=== PATIENT | female | born 1950 | race Caucasian/White ===

== ENCOUNTER → 2016-07-11 | Outpatient (CLI) | payer OTHER ==
[~2016-07-11] MED LIST: ALLO1TAB51 PO; AMLO-110 PO; ASPI-232 PO; CLOT1CRE3 TOP; DOCU100C PO; FENT100D2 TD; HYDR-5688 PO; LISI10TA PO; LPT/40 PO; MULT-506 PO; OMEP40CA PO; SOY CARE PO; TESTOSTERONE CREAM TOP; VITA400C15 PO; VITAMIN D PO
[2016-07-11 14:07] LABS: BASO % 0.9 %; BASO ABS # 0.05 K/uL (0-0.2); COMPLETE YES; EOS % 5.4 %; HEMATOCRIT 42.2 % (37-47); LYMPH ABS # 1.84 K/uL (1.2-3.4); MEAN CORPUSCULAR HEMOGLOBIN 28.7 pg (25-34); MEAN CORPUSCULAR HGB CONC 32.9 g/dl (32-36); MEAN PLATELET VOLUME 11.1 fL (7.4-10.4); MONO % 6.5 %; NEUT % 54.2 %; PLATELET COUNT 251 K/uL (130-400); RED BLOOD COUNT 4.85 M/uL (4.2-5.4); WHITE BLOOD COUNT 5.58 K/uL (4.8-10.8)
[2016-07-11 14:08] LABS: ESTIMATED AVERAGE GLUCOSE 131 mg/dl; HA1C FLAG Normal (Normal)
[2016-07-11 14:38] LABS: ALKALINE PHOSPHATASE 101 U/L (45-117); ALT/SGPT 31 U/L (12-78); AST/SGOT 31 U/L (15-37); BLOOD UREA NITROGEN 12 mg/dl (7-18); BUN/CREATININE RATIO 12.8 (10-20); CALCIUM 8.6 mg/dl (8.5-10.1); CARBON DIOXIDE 25 mmol/L (21-32); CHLORIDE 104 mmol/L (98-107); CHOLESTEROL 178 mg/dl (0-200); CREATININE 0.97 mg/dl (0.60-1.20); GLUCOSE 201 mg/dl (70-99); POTASSIUM 3.6 mmol/L (3.5-5.1); SODIUM 140 mmol/L (136-145); TRIGLYCERIDES 221 mg/dl (0-150); VERY LOW DENSITY LIPOPROT CALC 44 mg/dl
[2016-07-11 14:42] LABS: CHOLESTEROL/HDL RATIO 4.1; HDL CHOLESTEROL 43 mg/dl; LDL CHOLESTEROL CALCULATED 91 mg/dl
== END | disposition home or self-care (01) ==
LOC: C.LABSPEC 13:25
PROVIDERS: ATTEND Family Medicine
DX: Z00.00 Encounter for general adult medical examination without abnormal findings (principal); E11.9 Type 2 diabetes mellitus without complications; I10 Essential (primary) hypertension

== ENCOUNTER 2016-07-25 11:37 | Inpatient (IN) | payer OTHER ==
[2016-07-07 10:01] VITALS: BMI 36.0
--- NOTE | 2016-07-07 10:46 | PAT Medication Instructions ---
Service Date Jul 07, 2016. Current Home Medication List Allopurinol (Allopurinol), 100 MG PO HS Amlodipine (Norvasc), 5 MG PO QAM Aspirin (Aspir-81), 1 TAB PO QAM Atorvastatin (Lipitor), 40 MG PO HS Clotrimazole Vaginal (Clotrimazole), 1 DOSE TOP DAILY PRN for VAGINAL Docusate Sodium (Stool Softener), 300 MG PO HS Fentanyl (Duragesic), 100 MCG TD CQ72HR Lisinopril (Prinivil), 10 MG PO HS Multivitamin (Multivitamin), 1 TAB PO HS Omeprazole (Prilosec), 40 MG PO HS Tocopheryl Acet,Dl-Alpha (Vitamin E), 400 INTER.UNIT PO HS [Soy Care], 1 TAB PO BID [Testosterone Cream], 1 DOSE TOP PRN [Vitamin D], 400 UNITS PO HS Medication Instructions For Your Scheduled Surgery - Continue as directed: Fentanyl (Duragesic), 100 MCG TD CQ72HR - Hold the following medications 2 weeks prior to surgery: Tocopheryl Acet,Dl-Alpha (Vitamin E), 400 INTER.UNIT PO HS - Hold the following medications 24 hours prior to surgery: Lisinopril (Prinivil), 10 MG PO HS Clotrimazole Vaginal (Clotrimazole), 1 DOSE TOP DAILY PRN for VAGINAL [Testosterone Cream], 1 DOSE TOP PRN [Soy Care], 1 TAB PO BID - Take the following medications the morning of surgery with a sip of water: Amlodipine (Norvasc), 5 MG PO QAM Aspirin (Aspir-81), 1 TAB PO QAM - Take the following medications as scheduled the night before surgery: [Vitamin D], 400 UNITS PO HS Docusate Sodium (Stool Softener), 300 MG PO HS Multivitamin (Multivitamin), 1 TAB PO HS Omeprazole (Prilosec), 40 MG PO HS Allopurinol (Allopurinol), 100 MG PO HS Atorvastatin (Lipitor), 40 MG PO HS If you have any questions please call us at [phone] or [phone] or [phone]
--- NOTE | 2016-07-07 11:44 | DIAGNOSTIC IMAGING REPORT ---
CHEST PREADMISSION(PA/LAT) CLINICAL HISTORY: PAT preoperative evaluation COMPARISON STUDY: No previous studies for comparison. FINDINGS: The bones soft tissues and hemidiaphragms are normal. The cardiomediastinal silhouette is normal. The lungs are clear. The pulmonary vasculature is normal. IMPRESSION: Negative chest. Electronically signed by: Tai Andrews M.D. 07/07/2016 11:43 AM Dictated Date/Time: 07/07/2016 11:43 AM
[2016-07-07 11:59] LABS: BASO % 0.7 %; BASO ABS # 0.04 K/uL (0-0.2); COMPLETE YES; EOS % 4.5 %; HEMATOCRIT 42.2 % (37-47); IG% 0.2 %; LYMPH ABS # 1.51 K/uL (1.2-3.4); MEAN CELL VOLUME 87.2 fL (80-100); MEAN CORPUSCULAR HEMOGLOBIN 28.7 pg (25-34); MEAN CORPUSCULAR HGB CONC 32.9 g/dl (32-36); MEAN PLATELET VOLUME 10.6 fL (7.4-10.4); MONO % 8.6 %; PLATELET COUNT 256 K/uL (130-400); RED BLOOD COUNT 4.84 M/uL (4.2-5.4); WHITE BLOOD COUNT 6.05 K/uL (4.8-10.8)
[2016-07-07 12:10] LABS: URINE APPEARANCE CLEAR (CLEAR); URINE BILIRUBIN NEG (NEG); URINE COLOR YELLOW; URINE NITRITE NEG (NEG); URINE SPECIFIC GRAVITY 1.022 (1.000-1.030); UROBILINOGEN NEG (NEG)
[2016-07-07 12:13] LABS: MANUAL MICROSCOPIC REQUIRED? NO; REVIEW REQ? NO
[2016-07-07 12:22] LABS: BUN/CREATININE RATIO 10.2 (10-20); CALCIUM 8.6 mg/dl (8.5-10.1); CREATININE 0.96 mg/dl (0.60-1.20)
--- NOTE | 2016-07-21 09:19 | HISTORY & PHYSICAL EXAMINATION ---
DATE OF ADMISSION: 07/25/2016 The patient presents to our office with complaint of lower back pain. She has had 4 prior lumbar surgeries. Symptoms have returned. She cannot walk any distance. She has trialed injections without any long-lasting relief, as well as physical therapy in the past. She is currently on breakthrough oxycodone and a fentanyl patch for breakthrough pain. MEDICAL HISTORY: Significant for GERD, asthma, diabetes, gout, migraines, high cholesterol, hypertension, obesity. SURGICAL HISTORY: Significant for carpal-metacarpal arthroplasty, cholecystectomy, hysterectomy, carpal tunnel release, tonsillectomy, appendectomy, knee arthroscopy, tubal ligation, back surgery x4, total knee replacement. ALLERGIES: INCLUDE ZOFRAN, OXYCODONE, CAFFEINE, ASPIRIN, NUBAIN, ORPHENADRINE, TRAMADOL, TETANUS, TYLENOL, ADHESIVE AND CODEINE. MEDICATIONS: Include vitamin E, vitamin D, baby aspirin, Allopurinol 300 mg a day, testosterone gel to shoulder, arm and abdomen, Mobic 15 mg a day, atorvastatin 20 mg a day, lisinopril 5 mg a day, Celebrex 200 mg 2 times a day, amlodipine 5 mg a day, OxyContin 10 mg q. 12 hours, her fentanyl patch dosages is not listed. SOCIAL HISTORY: Denies tobacco and alcohol use. She is retired. FAMILY HISTORY: Significant for arthritis and diabetes. REVIEW OF SYSTEMS: Significant for back pain and leg pain. PHYSICAL EXAMINATION: HEENT: Speech appropriate. CARDIOPULMONARY: No gross abnormalities. ABDOMEN: Soft, nondistended. GENITOURINARY: Deferred. NEUROLOGIC: Cranial nerves II-XII grossly intact. MUSCULOSKELETAL: No focal atrophy of her lower extremities. A well-healed lumbar incision, lower back. Strength is intact bilateral lower extremities. ASSESSMENT: Severe spinal stenosis L3-L4, moderate to severe stenosis L4-L5, foraminal stenosis L5-S1. PLAN: At this point in time, we have discussed surgical intervention which would require revision decompression and fusion L3-L4, L4-L5 and L5-S1. Risks, benefits, pros, cons, and alternatives were outlined in detail. She would like to proceed with the above-mentioned surgical planning. ANNA
[~2016-07-25] VITALS: Ht 162.6 cm; Wt 94.8 kg
[2016-07-25] VITALS (8 sets, daily range): BP systolic 113–144; BP diastolic 73–100; PULSE 81–91; TEMP 36.5–37; O2SAT 95–99; Ht 162.6 cm; Wt 94.8 kg
--- NOTE | 2016-07-25 07:27 | History & Physical Bridge Note ---
H&P Re-Evaluation Bridge Note: I have examined the patient, reviewed the History & Physical and in the interval since the performance of the History & Physical I have noted the following changes of clinical significance: No changes noted
[~2016-07-25 11:37] MED LIST changes: +CEFAZOLIN 2000 MG/60 ML D5W IV SCH; -HYDR-5688 PO; +LACTATED RINGER'S 1000ML 1,000 ML IV SCH
[2016-07-25] MEDS ORDERED: LABETALOL HCL IV 5 MG/ML 20ML IV PRN (12:30)
[2016-07-25] MEDS ORDERED: EpHEDrine SULFATE INJ 50 MG/ML AMP IV PRN (12:30)
[2016-07-25] MEDS ORDERED: FENTANYL CITRATE INJ 50 MCG/1 ML 2 ML VIAL IV PRN (12:30)
[2016-07-25] MEDS ORDERED: NALOXONE HCL 0.4 MG/1 ML VIAL/CARP IV PRN ×3 (12:30→16:45)
[2016-07-25] MEDS ORDERED: MEPERIDINE HCL 25 MG/ML CARP IV PRN (12:30)
[2016-07-25] MEDS ORDERED: ONDANSETRON INJ 2 MG/ML 2 ML VIAL IV PRN ×2 (12:30→16:45)
[2016-07-25] MEDS ORDERED: HYDROmorphone INJ 2 MG/ML SYR/VIAL IV PRN (12:30)
[2016-07-25] MEDS ORDERED: FLUMAZENIL 0.1 MG/1 ML 10 ML VIAL IV PRN (12:30)
[2016-07-25] MEDS ORDERED: PHENYLEPHRINE 100MCG/ML 5ML SYR IV PRN (12:30)
[2016-07-25] MEDS ORDERED: ATROPINE SULFATE 0.1 MG/ML 5ML SYR IV PRN (12:30)
[2016-07-25] MEDS ORDERED: MIDAZOLAM HCL 1 MG/ML 2ML VIAL ONE (13:40)
[2016-07-25] MEDS ORDERED: FENTANYL CITRATE INJ 50 MCG/1 ML 2 ML VIAL ONE ×3 (13:40→17:33)
[2016-07-25] MEDS ORDERED: LIDOCAINE HCL 2% 2 ML VIAL (20MG/ML) ONE ×3 (14:08→15:28)
[2016-07-25] MEDS ORDERED: BACITRACIN 50000 UNIT VIAL ONE (14:14)
[2016-07-25] MEDS ORDERED: SODIUM CHLORIDE 0.9% PF 50 ML VIAL ONE (14:14)
[2016-07-25] MEDS ORDERED: BUPIVACAINE/EPINEPHRINE 0.5% MPF 1:200,000 30 ML VIAL ONE (14:14)
[2016-07-25] MEDS ORDERED: NEOSTIGMINE METHYLSULFATE 1 MG/ML 10ML VIAL ONE (14:19)
[2016-07-25] MEDS ORDERED: DEXAMETHASONE SOD INJ 4 MG/ML VIAL ONE (14:19)
[2016-07-25] MEDS ORDERED: ROCURONIUM BROMIDE 10 MG/ML 5 ML VIAL ONE (14:19)
[2016-07-25] MEDS ORDERED: ONDANSETRON INJ 2 MG/ML 2 ML VIAL ONE (14:19)
[2016-07-25] MEDS ORDERED: PROPOFOL IV EMULSION 10 MG/ML 20 ML VIAL IV ONE (14:19)
[2016-07-25] MEDS ORDERED: GLYCOPYRROLATE INJ 0.2 MG/ML VIAL ONE ×2 (14:19→15:29)
[2016-07-25] MEDS ORDERED: PHENYLEPHRINE 100MCG/ML 5ML SYR ONE (14:51)
[2016-07-25] MEDS ORDERED: EpHEDrine SULFATE 50MG/5ML SYR ONE (14:57)
[2016-07-25] MEDS ORDERED: HYDROmorphone INJ 2 MG/ML SYR/VIAL ONE (15:06)
[2016-07-25] MEDS ORDERED: FLOSEAL HEMOSTATIC MATRIX 10ML TOP ONE (16:32)
--- NOTE | 2016-07-25 16:35 | DIAGNOSTIC IMAGING REPORT ---
LUMBAR SPINE, INTRAOPERATIVE FLUOROSCOPY HISTORY: L3-S1 revision and fusion. FLUOROSCOPY TIME: 22 seconds.. FINDINGS: Intraoperative fluoroscopy was provided for the lumbar spine. 3 fluoroscopic spot images were obtained. Posterior decompression and fusion with pedicle screws and rods from L3 through S1. The hardware appears intact. IMPRESSION: Fluoroscopy provided for a L3-S1 posterior decompression and fusion. Electronically signed by: Ken Laboy M.D. 07/25/2016 4:33 PM Dictated Date/Time: 07/25/2016 4:32 PM
[2016-07-25] MEDS ORDERED: SODIUM CHLORIDE 0.9% 1000ML 1,000 ML IV SCH (16:41)
--- NOTE | 2016-07-25 16:41 | [facility] Post Operative Brief Note ---
Immediate Operative Summary Operative Date Jul 25, 2016. Pre-Operative Diagnosis Severe spinal stenosis L3-L4, moderate to severe stenosis L4-L5, foraminal stenosis L5-S1. Post-Operative Diagnosis Severe spinal stenosis L3-L4, moderate to severe stenosis L4-L5, foraminal stenosis L5-S1. Procedure(s) Performed L3-L4, L4-S1 Revision Lumbar Laminectomy, Decompression; Pedicle Screw Fixation ; Placement of Interbody Device at L3-L4; L3-L4, L4-S1 Posterolateral Fusion; Application Allograft; Bone Morphogenetic Protein Surgeon Dr. Dave Randle Java Lead Architect Surgeon(s) Alondra Robertson PA-C Estimated Blood Loss 400mL Findings stenosis Specimens None per surgeon
[2016-07-25] MEDS ORDERED: DO NOT ADMINISTER FLU VACCINE PRN ×3 (16:45)
[2016-07-25] MEDS ORDERED: MAGNESIUM HYDROXIDE SUSP 30 ML UDC PO PRN (16:45)
[2016-07-25] MEDS ORDERED: FAMOTIDINE 20 MG TAB PO PRN (16:45)
[2016-07-25] MEDS ORDERED: ACETAMINOPHEN IV 100 ML IV PRN (16:45)
[2016-07-25] MEDS ORDERED: PROMETHAZINE HCL INJ 12.5 MG in SODIUM CHLORIDE 0.9% 50ML 50 ML IV PRN (16:45)
[2016-07-25] MEDS ORDERED: BISACODYL 10 MG SUPP PR PRN (16:45)
[2016-07-25] MEDS ORDERED: LORAZEPAM 0.5 MG TAB PO PRN (16:45)
[2016-07-25] MEDS ORDERED: ALUMINUM/MAGNESIUM SUSP 30 ML UDC PO PRN (16:45)
[2016-07-25] MEDS ORDERED: METOCLOPRAMIDE HCL INJ 5 MG/ML 2 ML VIAL IV PRN (16:45)
[2016-07-25] MEDS ORDERED: SOD PHOSPHATE/SOD BIPHOSPHATE ENEMA 132 ML BTL PR PRN (16:45)
[2016-07-25] MEDS ORDERED: ACETAMINOPHEN 500 MG TAB PO PRN (16:45)
[2016-07-25] MEDS ORDERED: hydrOXYzine HCL 25 MG TAB PO PRN (16:45)
[2016-07-25] MEDS ORDERED: DO NOT ADMINISTER PNEUMOCOCCAL VACCINE PRN ×2 (16:45)
[2016-07-25] MEDS ORDERED: LORAZEPAM INJ 0.5 MG in SYRINGE 0 ML IV PRN (16:45)
[2016-07-25] MEDS ORDERED: HYDROmorphone HCL 0.5MG/ML 50 ML CASSETTE ONE (17:04)
[2016-07-25] MEDS ORDERED: HYDROmorphone INJ 1 MG/ML SYR ONE (18:01)
[2016-07-25] MEDS: HYDROmorphone HCL 0.5MG/ML 50 ML CASSETTE IV PRN ×2 (18:38→22:50)
--- NOTE | 2016-07-25 19:30 | Anesthesiology Progress Note ---
Anesthesia Post Op Note Date & Time Jul 25, 2016 at 19:30 Vital Signs Pain Intensity: 5 Vital Signs Past 12 Hours Date Time Temp Pulse Resp B/P Pulse Ox O2 Delivery O2 Flow Rate FiO2 07/25/16 19:05 36.7 84 18 129/78 99 Nasal Cannula 4.0 07/25/16 18:23 120/75 07/25/16 18:21 87 12 92 07/25/16 18:21 86 12 07/25/16 18:18 115/77 07/25/16 18:16 82 12 07/25/16 18:16 82 12 93 07/25/16 18:15 83 13 07/25/16 18:15 36.4 82 10 130/74 91 Nasal Cannula 4 07/25/16 18:15 83 13 92 07/25/16 18:13 130/74 07/25/16 18:10 86 9 93 07/25/16 18:10 86 9 07/25/16 18:08 135/71 07/25/16 18:05 84 15 92 07/25/16 18:05 85 15 07/25/16 18:03 126/78 07/25/16 18:00 83 9 07/25/16 18:00 83 9 94 07/25/16 17:58 131/73 07/25/16 17:55 85 10 07/25/16 17:55 86 10 93 07/25/16 17:53 132/80 07/25/16 17:50 93 17 95 07/25/16 17:50 93 17 07/25/16 17:48 149/80 07/25/16 17:45 85 7 92 07/25/16 17:45 84 7 07/25/16 17:43 146/76 07/25/16 17:40 86 14 94 07/25/16 17:40 86 14 07/25/16 17:38 149/74 07/25/16 17:35 89 16 07/25/16 17:35 89 16 92 07/25/16 17:33 136/79 07/25/16 17:30 93 14 07/25/16 17:30 93 14 94 07/25/16 17:28 146/72 07/25/16 17:25 87 10 99 07/25/16 17:25 87 10 07/25/16 17:23 146/78 07/25/16 17:20 93 14 07/25/16 17:20 94 14 98 07/25/16 17:18 135/78 07/25/16 17:15 99 12 07/25/16 17:15 98 12 98 07/25/16 17:13 146/86 07/25/16 17:10 99 12 99 07/25/16 17:10 99 12 07/25/16 17:08 138/79 07/25/16 17:05 98 15 07/25/16 17:05 97 15 100 07/25/16 17:03 127/77 07/25/16 17:00 37.0 98 14 134/86 97 Mask 10 07/25/16 17:00 96 14 07/25/16 17:00 96 14 98 07/25/16 12:28 37 81 20 140/100 95 Room Air 07/25/16 12:04 37 81 20 140/100 95 Room Air Notes Mental Status: alert / awake / arousable, participated in evaluation Pt Amnestic to Procedure: Yes Nausea / Vomiting: adequately controlled Pain: adequately controlled Airway Patency, RR, SpO2: stable & adequate BP & HR: stable & adequate Hydration State: stable & adequate Anesthetic Complications: no major complications apparent
[2016-07-25] MEDS: SODIUM CHLORIDE 0.9% 1000ML 1,000 ML IV SCH ×2 (19:38→23:02)
[2016-07-25] MEDS: ATORVASTATIN 40 MG TAB PO SCH (21:17)
[2016-07-25] MEDS: LISINOPRIL 10 MG TAB PO SCH (21:18)
[2016-07-25] MEDS: PANTOprazole SOD 40 MG TAB PO SCH (21:18)
[2016-07-25] MEDS: ALLOPURINOL 100 MG TAB PO SCH (21:18)
[2016-07-25] MEDS: DOCUSATE SODIUM/SENNA 50/8.6MG TAB PO SCH (21:19)
[2016-07-25] MEDS: CEFAZOLIN IV 2,000 MG in DEXTROSE 5% 50ML 50 ML IV SCH (21:33)
[2016-07-25] MEDS: DEXAMETHASONE INJ 6 MG in SYRINGE 0 ML IV SCH (21:34)
[2016-07-25] MEDS: CHECK FENTANYL PATCH PLACEMENT SCH (23:34)
--- NOTE | 2016-07-26 01:20 | OPERATIVE REPORT ---
DATE OF OPERATION: 07/25/2016 PREOPERATIVE DIAGNOSIS: Spinal stenosis. POSTOPERATIVE DIAGNOSIS: Same. PROCEDURES PERFORMED: 1. Revision decompression, medial facetectomy and foraminotomy L2-3, L3-4, L4-5. 2. Posterior spinal fusion L3-4, L4-5, and L5-S1. 3. Placement of posterior segmental instrumentation using Orthros rods and screws L3-4, L4-5, L5-S1. 4. Interbody fusion L3-4. 5. Placement of PEEK cage 11 x 22 mm at L3-4. 6. Placement of locally harvested morcellized autograft in posterior gutters. 7. Placement of Infuse collagen sponge combined with Mastergraft in posterior gutters and DBM in the interbody space. SURGEON: Dr. Dave Randle. PARTY PLAN DEMONSTRATOR: Alondra Murry PA-C. Due to the complex nature of the procedure, the entire surgery was performed with the assistant spa manager of JOSE MIGUEL Whiting. The assistant to the president, under direct supervision, was involved in the actual performance of all aspects of the surgical procedure including hemostasis, tissue retraction and incision, instrument management, patient positioning, and wound closure. ANESTHESIA: General. DISPOSITION: The patient awakened and taken to PACU in stable condition. HISTORY OF PATIENT'S PROBLEMS: This is a 66-year-old female who presents with above-mentioned diagnosis after failing an extensive course of nonoperative care, elected to undergo the above-mentioned procedure. Risks, benefits, pros, cons, and alternatives were outlined in detail preoperatively. DESCRIPTION OF PROCEDURE: The patient was met with preoperatively, case discussed and all questions were addressed. At that point, the patient was taken back to operative suite and after undergoing successful general endotracheal intubation was placed in prone position on the Lamonte table atop the Jeronimo frame. All bony prominences were well padded and the eyes were inspected to ensure there was no external pressure placed upon them. At this point, the lumbar spine was prepped and draped in normal sterile fashion. Utilizing the previous incision site, sharp dissection with the assistance of cautery performed down to and exposing the lamina and transverse processes of L3, L4 and L5 as well as the sacral ala bilaterally. I then performed a revision decompression complete L4-5, complete laminectomy of L3, partial laminectomy of L2 addressing severe lateral recess foraminal disease. Pedicle screws were then placed at L3, L4, L5 and S1 levels bilaterally with assistance of fluoroscopy and through a transforaminal approach on the right, a complete discectomy of L2, L3, L4 was performed, endplates curetted to subcortical bleeding bone and an 11 x 22 mm PEEK cage filled with DBM tapped into position. The rods were then compressed, locked into final position bilaterally and transverse processes of L3, L4, L5 and sacral ala burred to subcortical bone. Infuse collagen sponge combined with Mastergraft and locally harvested morcellized autograft was placed in the posterior gutters. A crosslink locked into position, 7 flat ZHOU drain inserted, and incision was closed with #1 Vicryl in the fascia, 2-0 Vicryl subcutaneously, 4-0 Monocryl for final skin closure. Steri-Strips and sterile dressing was placed. The patient was awakened and taken to PACU in stable condition. I attest to the content of the Intraoperative Record and any orders documented therein. Any exceptio ns are noted below.
[2016-07-26 03:35] VITALS: BP 111/71; PULSE 86; TEMP 36.8; O2SAT 96
[2016-07-26] MEDS: DEXAMETHASONE INJ 6 MG in SYRINGE 0 ML IV SCH ×2 (05:42→14:41)
[2016-07-26] MEDS: CEFAZOLIN IV 2,000 MG in DEXTROSE 5% 50ML 50 ML IV SCH (05:48)
[2016-07-26] MEDS ORDERED: DC PCA ONE (06:00)
[2016-07-26] MEDS ORDERED: HYDROmorphone INJ 1 MG/ML SYR IV PRN (06:00)
[2016-07-26] MEDS ORDERED: NURSING DECISION MEDICATION ORDER SCH (06:45)
[2016-07-26 07:25] LABS: BASO % 0.1 %; BASO ABS # 0.01 K/uL (0-0.2); COMPLETE YES; HEMATOCRIT 35.5 % (37-47); IG% 0.4 %; LYMPH % 7.4 %; LYMPH ABS # 0.99 K/uL (1.2-3.4); MEAN CELL VOLUME 88.1 fL (80-100); MEAN CORPUSCULAR HEMOGLOBIN 28.3 pg (25-34); MEAN CORPUSCULAR HGB CONC 32.1 g/dl (32-36); MEAN PLATELET VOLUME 10.4 fL (7.4-10.4); NEUT % 88.1 %; PLATELET COUNT 236 K/uL (130-400); RED BLOOD COUNT 4.03 M/uL (4.2-5.4); WHITE BLOOD COUNT 13.37 K/uL (4.8-10.8)
[2016-07-26] MEDS: CHECK FENTANYL PATCH PLACEMENT SCH ×3 (07:52→22:41)
[2016-07-26] MEDS: HYDROCODONE/ACETAMOPHEN 5/325MG TAB PO PRN ×3 (07:53→19:03)
[2016-07-26 08:01] LABS: BUN/CREATININE RATIO 11.3 (10-20); CALCIUM 8.2 mg/dl (8.5-10.1); CREATININE 0.98 mg/dl (0.60-1.20); POTASSIUM 4.1 mmol/L (3.5-5.1)
[2016-07-26 08:09] VITALS: BP 122/75; PULSE 70; TEMP 36.9; O2SAT 92
[2016-07-26] MEDS: AMLODIPINE BESYLATE 5 MG TAB PO SCH (08:35)
[2016-07-26] MEDS: ASPIRIN 81 MG ECTAB PO SCH (08:35)
[2016-07-26] MEDS ORDERED: FENTANYL PATCH REMOVE & WASTE SCH (08:59)
[2016-07-26] MEDS ORDERED: FENTANYL 100 MCG/HR TDSY TD SCH (09:00)
--- NOTE | 2016-07-26 10:00 | Anesthesiology Progress Note ---
Anesthesia Post Op Note Date & Time Jul 26, 2016 at 10:00 Vital Signs Pain Intensity: 6.0 Vital Signs Past 12 Hours Date Time Temp Pulse Resp B/P Pulse Ox O2 Delivery O2 Flow Rate FiO2 07/26/16 08:25 Room Air 07/26/16 08:09 36.9 70 16 122/75 92 Room Air 07/26/16 08:05 Room Air 07/26/16 03:35 36.8 86 16 111/71 96 Nasal Cannula 4.0 07/26/16 00:00 Nasal Cannula 4.0 07/25/16 23:30 36.9 83 16 121/73 98 Nasal Cannula 4.0 Notes Mental Status: alert / awake / arousable, participated in evaluation Pt Amnestic to Procedure: Yes Nausea / Vomiting: adequately controlled Pain: adequately controlled Airway Patency, RR, SpO2: stable & adequate BP & HR: stable & adequate Hydration State: stable & adequate Anesthetic Complications: no major complications apparent
[2016-07-26 11:07] VITALS: BP 126/75; PULSE 89; TEMP 37; O2SAT 92
[2016-07-26 15:08] VITALS: BP 118/68; PULSE 87; TEMP 37; O2SAT 92
--- NOTE | 2016-07-26 17:16 | PROGRESS NOTE ---
DATE: 07/26/2016 SUBJECTIVE: Postop day 1. Back pain controlled. Leg pain improved. Vital signs stable. T-max 37.0. ZHOU drained 200 mL today. Hematocrit stable at 35.5. PHYSICAL EXAMINATION: She has good strength to testing. Appears comfortable. ASSESSMENT: Status post revision decompression and fusion. PLAN: At this time, will continue physical therapy, advance her bowel regimen and anticipate rehab in the next few days.
[2016-07-26] MEDS: DOCUSATE SODIUM/SENNA 50/8.6MG TAB PO SCH (20:59)
[2016-07-26] MEDS: LISINOPRIL 10 MG TAB PO SCH (20:59)
[2016-07-26] MEDS: PANTOprazole SOD 40 MG TAB PO SCH (20:59)
[2016-07-26] MEDS: ATORVASTATIN 40 MG TAB PO SCH (20:59)
[2016-07-26] MEDS: ALLOPURINOL 100 MG TAB PO SCH (20:59)
[2016-07-26 23:00] VITALS: BP 143/79; PULSE 86; TEMP 37.1; O2SAT 95
[2016-07-27] MEDS: POLYETHYLENE (MIRALAX) 17 GM PACK PO SCH ×4 (05:46→23:34)
[2016-07-27 06:51] VITALS: BP 158/93; PULSE 73; TEMP 37; O2SAT 98
[2016-07-27] MEDS ORDERED: HYDR-5688 PO (07:38)
--- NOTE | 2016-07-27 07:38 | Discharge Instructions ---
Discharge Instructions Admission Reason for Admission: Lumbar Spinal Stenosis Discharge Discharge Diagnosis / Problem: stenosis Discharge Goals Goal(s): Improve function Activity Recommendations Activity Limitations: per Instructions/Follow-up section . Instructions / Follow-Up Instructions / Follow-Up ACTIVITY RECOMMENDATIONS: SELF CARE INSTRUCTIONS AFTER THORACIC/LUMBAR FUSIONS 1. You may walk to your tolerance. It is good exercise for your legs and back. Expect some back and intermittent leg aches and pains. 2. You may perform "counter-top" level activities (make a sandwich, raquel with a project, etc.). 3. No bending or lifting of more than 10 pounds or back twisting of any nature (roll like a log when turning in bed). 4. You may ride in a car for 20-30 minutes at a time. No driving until after your first visit with your doctor. 5. Frequent changes of position and restricting sitting to 30 minutes at a time will help limit the amount of back spasms and stiffness you may experience. 6. You may discontinue the use of ambulatory aids (cane, crutches, etc.) once your strength and confidence allow. 7. You may evening anchor the shower and let water strike your incision when you arrive home at least once daily. Do not take a tub bath, sit in a hot tub or go into a swimming pool until after your first recheck in the office. SPECIAL CARE INSTRUCTIONS: VERY IMPORTANT TO READ AND REVIEW A. Your surgical incision has been closed with a cosmetic suture under the skin that will dissolve in about 6 weeks. In 14 days, you can use a pair of clean scissors and cut the suture that is left outside of the skin at the ends of your incision. 1. The small skin tapes can be removed 7 days after surgery if they have not fallen off by that point. 2. You may keep the wound open to air as much as possible to promote healing after post-op day number 5 unless told otherwise by your doctor. 3. If you think the wound looks like it is becoming infected (redness or worsening drainage) and/or you are experiencing fever, chill or worsening back pain and muscle spasms, contact the office so that we may evaluate you as soon as possible. B. Complications are uncommon, but please contact us if you have any signs or symptoms of: 1. wound infection (fever higher than 102.5 degrees F, redness, separation of wound, drainage, or increasing pain from the incision) 2. blood clots in legs (pain, swelling, redness and warmth in legs) 3. urinary tract infection (fever higher than 102.5 degrees F, burning upon urination or increased frequency of urination) 4. nerve problems (inability to walk on your toes or heels, numbness, loss of bowel or bladder control) 5. any other symptoms that concern you C. Please call the office at if you have any concerns or questions about your operation or recovery. D. No smoking! Smoking drastically decreases the chance of a solid fusion. E. Do not take any anti-inflammatory medications (Indocin, Advil, Motrin, Aspirin, Naprosyn, etc.) as these may inhibit the chance of a solid fusion. Tylenol is okay to take for pain. MANAGING PAIN AFTER SPINAL SURGERY 1. Narcotic medication is intended for short-term use and will be provided for surgical pain. Surgical pain usually lasts for a period of 4-6 weeks. Narcotic medication includes Percocet, Vicodin, Darvocet, Tylenol #3 or Lortab. 2. Longer-term pain is more appropriately treated with non-narcotic medication such as Tylenol ES. 3. Muscle spasm is not appropriately treated with narcotics. Muscle relaxers such as Soma, Flexeril or Skelaxin can be used along with Tylenol ES. 4. Remember that we all live with some "aches and pains". This is not unusual or uncommon after an injury or as we get older. a. Back pain is expected and may include muscle spasms for 4 to 6 weeks after surgery. The pain should gradually improve. If the pain worsens for no apparent reason, please contact the office. b. Intermittent leg pain may also be experienced and should not be concerned about unless it worsens for no apparent reason. If so, please contact the office. 5. We will provide appropriate medication within the normal guidelines of their prescribed use. We will also be very cautious and aware of potential abuse and extended duration of patients' medication needs. a. Pain medications are for your comfort and to assist with sleep and rest so that the tissue can heal. They are not provided in order to return to normal activity and should not be used through the day. To do so or worsening pain at night can result from ongoing tissue damage and development of tolerance to the prescribed medicine. 6. Please allow 2-3 days to process refills. Prescriptions will not be mailed but must be picked up at the office. FOLLOW UP VISIT: Keep your scheduled follow-up appointment. Any questions, please call the office at . Current Hospital Diet Patient's current hospital diet: Regular Diet Discharge Diet Recommended Diet: Regular Diet Procedures Procedures Performed: L3-L4, L4-S1 Revision Lumbar Laminectomy, Decompression; Pedicle Screw Fixation ; Placement of Interbody Device at L3-L4; L3-L4, L4-S1 Posterolateral Fusion; Application Allograft; Bone Morphogenetic Protein Pending Studies Studies pending at discharge: no Laboratory Results Hemoglobin A1c Test 07/11/16 11:20 Range/Units Estimated Average Glucose 131 mg/dl Hemoglobin A1c 6.2 H 4.5-5.6 % Lipid Panel Test 07/11/16 11:20 Range/Units Triglycerides Level 221 H 0-150 mg/dl Cholesterol Level 178 0-200 mg/dl HDL Cholesterol 43 mg/dl Cholesterol/HDL Ratio 4.1 LDL Cholesterol, Calculated 91 mg/dl Medical Emergencies . Who to Call and When: Medical Emergencies: If at any time you feel your situation is an emergency, please call 911 immediately. . Non-Emergent Contact Non-Emergency issues call your: Primary Care Provider . "Provider Documentation" section prepared by Dave Randle. VTE Core Measure Inpt VTE Proph given/why not?: Darío Thomas, SCD's
[2016-07-27] MEDS: CHECK FENTANYL PATCH PLACEMENT SCH ×3 (08:17→23:30)
[2016-07-27] MEDS: AMLODIPINE BESYLATE 5 MG TAB PO SCH (08:17)
[2016-07-27] MEDS: ASPIRIN 81 MG ECTAB PO SCH (08:17)
[2016-07-27] MEDS: HYDROCODONE/ACETAMOPHEN 5/325MG TAB PO PRN ×3 (08:18→19:08)
--- NOTE | 2016-07-27 14:12 | PROGRESS NOTE ---
DATE: 07/27/2016 DATE: 07/27/2016. SUBJECTIVE: Postop day #2. Back pain controlled. Leg pain improved. Vital signs stable. T-max 37.0. ZHOU drained 50 mL. Hematocrit this a.m. is 35.5. OBJECTIVE: On exam, she has good strength to testing, ambulating the halls, is very comfortable. ASSESSMENT: Status post revision decompression and fusion. PLAN: At this time, we are planning for transition to [facility] [place] tomorrow. She understands and agrees.
[2016-07-27 15:13] VITALS: BP 110/68; PULSE 68; TEMP 37; O2SAT 94
[2016-07-27] MEDS: LISINOPRIL 10 MG TAB PO SCH (21:47)
[2016-07-27] MEDS: DOCUSATE SODIUM/SENNA 50/8.6MG TAB PO SCH (21:48)
[2016-07-27] MEDS: PANTOprazole SOD 40 MG TAB PO SCH (21:48)
[2016-07-27] MEDS: ATORVASTATIN 40 MG TAB PO SCH (21:48)
[2016-07-27] MEDS: ALLOPURINOL 100 MG TAB PO SCH (21:48)
[2016-07-27 22:45] VITALS: BP 123/76; PULSE 65; TEMP 36.7; O2SAT 95
[2016-07-27] MEDS ORDERED: NURSING VERBAL MED ORDER ONE (23:30)
[2016-07-28] MEDS: HYDROCODONE/ACETAMOPHEN 5/325MG TAB PO PRN ×3 (03:16→14:49)
[2016-07-28 07:02] VITALS: BP 108/67; PULSE 68; TEMP 36.9; O2SAT 94
[2016-07-28] MEDS: CHECK FENTANYL PATCH PLACEMENT SCH (07:41)
[2016-07-28] MEDS: AMLODIPINE BESYLATE 5 MG TAB PO SCH (07:42)
[2016-07-28] MEDS: ASPIRIN 81 MG ECTAB PO SCH (07:42)
[2016-07-28 10:43] VITALS: BP 108/67; PULSE 68; TEMP 36.9; O2SAT 94
[2016-07-28 11:22] VITALS: BP 156/98; PULSE 73; TEMP 37.1; O2SAT 96
--- NOTE | 2016-08-02 08:42 | DISCHARGE SUMMARY ---
PRINCIPAL DIAGNOSIS: Spinal stenosis. HOSPITAL COURSE FOLLOWS: On 07/25/2016 the patient underwent lumbar decompression and fusion. Tolerated this well and taken to orthopedic floor postoperatively. Postop day 1 she was up and ambulatory and progressed nicely to postop day 2. Subsequently on postop day 3 she was transferred to a rehab facility. Discharge orders and instructions found on the chart for further review.
== END 2016-07-28 15:30 | DRG 460 ==
LOC: ENRESERVTM → ENRESERVDT → C.ACU 11:37 → C.3E 16:46
PROVIDERS: ADMIT Orthopaedic Surgery Orthopaedic Surgery of the Spine; ATTEND Orthopaedic Surgery Orthopaedic Surgery of the Spine
PROC: 0SG3071 Fusion of Lumbosacral Joint with Autologous Tissue Substitute, Posterior Approach, Posterior Column, Open Approach (ICD-10-PCS; principal; 2016-07-25 13:55)
PROC: 3E0U0GB Introduction of Recombinant Bone Morphogenetic Protein into Joints, Open Approach (ICD-10-PCS; principal; 2016-07-25 13:55)
PROC: 0SG1071 Fusion of 2 or more Lumbar Vertebral Joints with Autologous Tissue Substitute, Posterior Approach, Posterior Column, Open Approach (ICD-10-PCS; principal; 2016-07-25 13:55)
PROC: 01NB0ZZ Release Lumbar Nerve, Open Approach (ICD-10-PCS; principal; 2016-07-25 13:55)
PROC: 0ST20ZZ Resection of Lumbar Vertebral Disc, Open Approach (ICD-10-PCS; principal; 2016-07-25 13:55)
PROC: 0SG00AJ Fusion of Lumbar Vertebral Joint with Interbody Fusion Device, Posterior Approach, Anterior Column, Open Approach (ICD-10-PCS; principal; 2016-07-25 13:55)
DX: M48.06 Spinal stenosis, lumbar region (principal); M48.07 Spinal stenosis, lumbosacral region; J45.909 Unspecified asthma, uncomplicated; I10 Essential (primary) hypertension; E11.9 Type 2 diabetes mellitus without complications; E78.5 Hyperlipidemia, unspecified; K21.9 Gastro-esophageal reflux disease without esophagitis; M10.9 Gout, unspecified; M19.90 Unspecified osteoarthritis, unspecified site; G47.33 Obstructive sleep apnea (adult) (pediatric); E66.9 Obesity, unspecified; Z68.36 Body mass index [BMI] 36.0-36.9, adult; I25.2 Old myocardial infarction; Z96.652 Presence of left artificial knee joint; Z87.891 Personal history of nicotine dependence; Z79.1 Long term (current) use of non-steroidal anti-inflammatories (NSAID); Z79.82 Long term (current) use of aspirin; Z79.891 Long term (current) use of opiate analgesic; Z79.899 Other long term (current) drug therapy

== ENCOUNTER → 2017-01-09 | Outpatient (CLI) | payer OTHER ==
[~2017-01-09] MED LIST changes: -CEFAZOLIN 2000 MG/60 ML D5W IV SCH; +HYDR-5688 PO; -LACTATED RINGER'S 1000ML 1,000 ML IV SCH
[2017-01-09 14:57] LABS: BASO ABS # 0.06 K/uL (0-0.2); COMPLETE YES; EOS % 4.2 %; HEMATOCRIT 42.1 % (37-47); IG% 0.3 %; LYMPH % 29.5 %; LYMPH ABS # 1.76 K/uL (1.2-3.4); MEAN CELL VOLUME 86.6 fL (80-100); MEAN CORPUSCULAR HEMOGLOBIN 26.7 pg (25-34); MEAN CORPUSCULAR HGB CONC 30.9 g/dl (32-36); MEAN PLATELET VOLUME 10.6 fL (7.4-10.4); MONO % 9.1 %; NEUT % 55.9 %; PLATELET COUNT 283 K/uL (130-400); RED BLOOD COUNT 4.86 M/uL (4.2-5.4); WHITE BLOOD COUNT 5.96 K/uL (4.8-10.8)
[2017-01-09 15:11] LABS: ALT/SGPT 35 U/L (12-78); BLOOD UREA NITROGEN 14 mg/dl (7-18); BUN/CREATININE RATIO 15.1 (10-20); CALCIUM 8.9 mg/dl (8.5-10.1); CARBON DIOXIDE 29 mmol/L (21-32); CHLORIDE 104 mmol/L (98-107); CHOLESTEROL 181 mg/dl (0-200); CREATININE 0.91 mg/dl (0.60-1.20); GLUCOSE 125 mg/dl (70-99); POTASSIUM 3.6 mmol/L (3.5-5.1); SODIUM 141 mmol/L (136-145); TRIGLYCERIDES 247 mg/dl (0-150); VERY LOW DENSITY LIPOPROT CALC 49 mg/dl
[2017-01-09 15:14] LABS: ALKALINE PHOSPHATASE 97 U/L (45-117); AST/SGOT 30 U/L (15-37); CHOLESTEROL/HDL RATIO 4.9; HDL CHOLESTEROL 37 mg/dl; LDL CHOLESTEROL CALCULATED 95 mg/dl
[2017-01-10 06:41] LABS: ESTIMATED AVERAGE GLUCOSE 126 mg/dl; HA1C FLAG Normal (Normal)
== END | disposition home or self-care (01) ==
LOC: C.LABSPEC 14:19
PROVIDERS: ATTEND Family Medicine
DX: Z00.00 Encounter for general adult medical examination without abnormal findings (principal); E11.9 Type 2 diabetes mellitus without complications; I10 Essential (primary) hypertension

== ENCOUNTER → 2018-01-11 | Outpatient (CLI) | payer OTHER ==
[~2018-01-11] MED LIST changes: -AMLO-110 PO; +AMLO5TAB3 PO
[2018-01-11 18:26] LABS: BASO % 0.7 %; BASO ABS # 0.05 K/uL (0-0.2); EOS % 3.9 %; EOS ABS # 0.27 K/uL (0-0.5); HEMATOCRIT 42.3 % (37-47); IG# 0.02 K/uL (0.00-0.02); LYMPH % 23.7 %; LYMPH ABS # 1.66 K/uL (1.2-3.4); MEAN CELL VOLUME 89.6 fL (80-100); MEAN CORPUSCULAR HEMOGLOBIN 29.7 pg (25-34); MEAN CORPUSCULAR HGB CONC 33.1 g/dl (32-36); MEAN PLATELET VOLUME 10.8 fL (7.4-10.4); MONO % 7.7 %; MONO ABS # 0.54 K/uL (0.11-0.59); NEUT % 63.7 %; NEUT ABS # 4.47 K/uL (1.4-6.5); PLATELET COUNT 260 K/uL (130-400); RED CELL DISTRIBUTION WIDTH CV 12.4 % (11.5-14.5); RED CELL DISTRIBUTION WIDTH SD 40.6 fL (36.4-46.3); WHITE BLOOD COUNT 7.01 K/uL (4.8-10.8)
[2018-01-11 18:36] LABS: ALBUMIN 3.6 gm/dl (3.4-5.0); ALKALINE PHOSPHATASE 85 U/L (45-117); ALT/SGPT 29 U/L (12-78); AST/SGOT 29 U/L (15-37); BLOOD UREA NITROGEN 14 mg/dl (7-18); CALCIUM 8.6 mg/dl (8.5-10.1); CARBON DIOXIDE 29 mmol/L (21-32); CHOLESTEROL 176 mg/dl (0-200); CREATININE 0.86 mg/dl (0.60-1.20); GLUCOSE 152 mg/dl (70-99); LDL CHOLESTEROL CALCULATED 92 mg/dl; POTASSIUM 3.7 mmol/L (3.5-5.1); SODIUM 138 mmol/L (136-145)
== END | disposition home or self-care (01) ==
LOC: C.LABSPEC 18:03
PROVIDERS: ATTEND Family Medicine
DX: E11.9 Type 2 diabetes mellitus without complications (principal); I10 Essential (primary) hypertension

== ENCOUNTER 2021-10-08 04:48 | Observation (INO) ==
--- NOTE | 2021-09-07 16:01 | PAT Medication Instructions ---
Medication Instructions Date of Service September 07, 2021 Home Medications aspirin 81 mg tablet,delayed release (Aspir-) 81 mg PO QAM omeprazole 40 mg capsule,delayed release 40 mg PO QAM allopurinol 100 mg tablet 100 mg PO QAM atorvastatin 80 mg tablet 80 mg PO QAM fentanyl 100 mcg/hr transdermal patch (Duragesic) 1 patch TRANSDERMAL Q72H lisinopril 10 mg tablet 10 mg PO QAM lidocaine 3.5 % topical patch 1 patch TOPICAL UD PRN oxycodone 5 mg tablet 5 mg PO DAILY PRN sennosides 8.6 mg tablet (Senna Lax) 8.6 mg PO DAILY PRN soy isoflavone 1 dose PO QAM cholecalciferol (vitamin D3) 10 mcg (400 unit) tablet (Vitamin D3) 10 mcg PO QAM multivitamin 1 cap PO QAM vitamin E 400 unit capsule 400 unit PO QAM Continue as directed lidocaine 3.5 % topical patch 1 patch TOPICAL UD PRN (avoid placement near surgery site prior to surgery) fentanyl 100 mcg/hr transdermal patch (Duragesic) 1 patch TRANSDERMAL Q72H (avoid placement near surgery site prior to surgery) STOP taking 2 weeks before surgery (or as soon as possible if surgery is within 2 weeks) vitamin E 400 unit capsule 400 unit PO QAM soy isoflavone 1 dose PO QAM DO NOT take the morning of surgery lisinopril 10 mg tablet 10 mg PO QAM sennosides 8.6 mg tablet (Senna Lax) 8.6 mg PO DAILY PRN cholecalciferol (vitamin D3) 10 mcg (400 unit) tablet (Vitamin D3) 10 mcg PO QAM multivitamin 1 cap PO QAM Take morning of surgery With a small sip of water, OTHERWISE NOTHING TO EAT OR DRINK AFTER MIDNIGHT: aspirin 81 mg tablet,delayed release (Aspir-) 81 mg PO QAM (continue as normal unless told otherwise by surgeon) omeprazole 40 mg capsule,delayed release 40 mg PO QAM allopurinol 100 mg tablet 100 mg PO QAM atorvastatin 80 mg tablet 80 mg PO QAM oxycodone 5 mg tablet 5 mg PO DAILY PRN (okay to take up to 4 hours prior to surgery if needed) Take evening before surgery oxycodone 5 mg tablet 5 mg PO DAILY PRN (if needed) sennosides 8.6 mg tablet (Senna Lax) 8.6 mg PO DAILY PRN (if needed) Other Notes If you have any questions please call us at [phone] or [phone] or [phone] or [phone]
--- NOTE | 2021-09-09 12:28 | Anesthesiology Consultation ---
Date of Service September 09, 2021 Assessment & Plan (1) Encounter for pre-operative examination: Chart Review Chart Review: Acceptable Risk for Surgery (pending surgeon ordered PCP clearance, cardio clearance and preop Covid testing results ) and Patient seen in Pre Admission Testing - Check BSG AM DOS - Awaiting PCP clearance (09/13/21) and cardio clearance (09/15/21) -Pt is NOT an Outpatient Joint candidate- does not have at home support- surgeon's office made aware that patient needs changed to admission. Per PAT appt on 09/09/21, patient denies any recent travel or large group activities. No known Covid positive exposures or Covid related symptoms. No known Covid infection in the past 90 days. Pt is vaccinated for Covid. Preop Covid testing scheduled 10/06/21= will await results. Educated on importance of self quarantining, social distancing and wearing mask in public for the patient one week prior to surgery and after Covid testing done History Surgery Operation Date: 10/08/21 07:15 Proposed Procedures p OP: Right Total Knee Arthroplasty - Eleuterio Fernandes, Height/Weight Height: 5 ft 4 in Weight: 92.9 kg Allergies Allergy/AdvReac Type Severity Reaction Status Date / Time adhesive Allergy Unknown Tape- Verified 09/07/21 09:24 redness, "takes skin off" orphenadrine AdvReac Severe Heart Verified 09/07/21 09:24 racing, GI upset codeine AdvReac Intermediate GI upset, Verified 09/07/21 09:24 heart racing cyclobenzaprine AdvReac Intermediate Bradycardia Verified 09/07/21 09:24 with all muscle relaxants nalbuphine AdvReac Intermediate Heart Verified 09/07/21 09:24 racing, GI upset ondansetron AdvReac Intermediate Migraines, Verified 09/07/21 09:24 N/V tramadol AdvReac Intermediate Heart Verified 09/07/21 09:24 racing, GI upset Tetanus Antitoxin Allergy Severe High Uncoded 09/07/21 09:24 fever, "almost " as child Medications Home Medications Medication Instructions Recorded Confirmed Last Taken aspirin 81 mg tablet,delayed 81 mg PO QAM 04/06/18 09/07/21 04/22/18 release (Aspir-) omeprazole 40 mg capsule,delayed 40 mg PO QAM 04/06/18 09/07/21 04/23/18 07:00 release allopurinol 100 mg tablet 100 mg PO QAM tab 11/11/20 09/07/21 Unknown atorvastatin 80 mg tablet 80 mg PO QAM 11/11/20 09/07/21 Unknown blood sugar diagnostic (Embrace #10 ea 11/11/20 11/12/20 Unknown Blood Glucose System) fentanyl 100 mcg/hr transdermal 1 patch TRANSDERMAL Q72H 11/11/20 09/07/21 Unknown patch (Duragesic) lisinopril 10 mg tablet 10 mg PO QAM tab 11/11/20 09/07/21 Unknown lidocaine 3.5 % topical patch 1 patch TOPICAL UD PRN 11/12/20 09/07/21 Unknown oxycodone 5 mg tablet 5 mg PO DAILY PRN 11/12/20 09/07/21 Unknown sennosides 8.6 mg tablet (Senna 8.6 mg PO DAILY PRN 11/12/20 09/07/21 Unknown Lax) soy isoflavone 1 dose PO QAM 11/12/20 09/07/21 Unknown cholecalciferol (vitamin D3) 10 10 mcg PO QAM 04/06/21 09/07/21 Unknown mcg (400 unit) tablet (Vitamin D3) multivitamin 1 cap PO QAM 04/06/21 09/07/21 Unknown vitamin E 400 unit capsule 400 unit PO QAM 04/06/21 09/07/21 Unknown Past Medical History Medical History Chronic back pain Chronic chest wall pain "Chronic chest wall syndrome" stable per pt Degenerative disc disease Diabetes mellitus, type 2 DIET CONTROLLED/NO MEDS Glucose stable GERD (gastroesophageal reflux disease) Well controlled and stable History of asthma NO INHALER History of COVID-19 4 MONTHS AGO>NAUSEA/COUGHING (TESTED AT [facility]) FEELING BETTER History of dizziness After hot showers, chronic, stable per pt History of kidney stones No recent issues Hyperlipidemia Hypertension Lumbar stenosis with neurogenic claudication Exercise / Class Metabolic Activity III < 4 Walking/Shop/Light housework (no chest pain or SOB with flat surface ambulation ) Past Family History Family History Father , Due to Heart Disease Heart disease Mother , due to Alzheimer's Disease Alzheimer disease Sister Family history of colon cancer Sister Family history of colonic polyps Other Family history of diabetes mellitus in father Past Surgical History Surgical History Family history of reaction to anesthesia 3 children difficult to wake Fusion of spine Lumbar (4 surgeries, last in 2006) History of appendectomy History of bilateral tubal ligation History of cardiac cath X2 (2009 last) > NO STENTS History of carpal tunnel release RT/LEFT History of cholecystectomy History of colonoscopy History of hysterectomy History of lithotripsy History of thumb surgery bilateral History of tonsillectomy and adenoidectomy History of total knee replacement left Past Anesthesia History No Hx of Anesthesia Complications and No Family Hx of Anesthesia Complications (with exception to children - slow to wake - no hx of reintubation or ICU stay ) History of PONV No Hx of PONV and No Hx of Motion Sickness Social History Smoking Status: Former smoker tobacco type: cigarettes Do You Dip or Chew Tobacco: No Smoking End Date: 40 YEARS AGO Hx Alcohol Use: Yes Alcohol type: wine alcohol intake frequency: holidays/special occasions only Hx Substance Use: No Review of Systems Hx of chronic cough- mild/nonproductive Hx of snoring - no hx of witnessed apnea- hx of sleep study - patient states dx'ed with FIDEL (but patient states she was awake the entire sleep study) Patient denies chest pain, shortness of breath, dyspnea on exertion, wheezing, palpitations. No hx of seizures, stroke, AL.. No hx of blood clots or blood transfusions Physical Exam Vital Signs VITALS BP 162/88 (manually) P 61 TEMP 98.6 SP02 95% RESP 16 Constitutional no acute distress ENMT Mouth: + small oral opening; no TMJ clicking Thyromental Distance: > or= 3.5 Finger Breadths (3.5) Mallampati Class: III Full upper dentures Missing all bottom teeth Neck + short neck and + limited neck extension (significant ) Respiratory normal respiratory effort; no respiratory distress Auscultation: lungs clear to auscultation bilaterally; no wheezes Cardiovascular Rate/Rhythm: regular rate and regular rhythm Heart Sounds: no murmur Vessels: no carotid bruit Musculoskeletal Spine: no pain with cervical ROM Extremities: extremities normal to inspection Psychiatric Orientation: alert Lab Results Anesthesia Preop Results Results Anesthesia Widget: WBC 7.07 K/uL (4.8-10.8) 09/09/21 Hgb 13.1 g/dL (12.0-16.0) 09/09/21 Hct 39.6 % (37-47) 09/09/21 Plt 268 K/uL (130-400) 09/09/21 Na 140 mmol/L (136-145) 09/09/21 K 4.0 mmol/L (3.5-5.1) 09/09/21 Cl 103 mmol/L (98-107) 09/09/21 CO2 32 mmol/L (21-32) 09/09/21 BUN 14 mg/dl (6-23) 09/09/21 Creat 0.68 mg/dl (0.6-1.2) 09/09/21 Glucose Level 92 mg/dl (70-99(Fasting)) 09/09/21 PT 10.2 Seconds (9.0-12.0) 09/09/21 PTT 25.7 Seconds (21.0-31.0) 09/09/21 INR 1.0 (0.9-1.1) 09/09/21 HA1c 6.6 % (4.5-5.6) H 09/09/21 Urine Color Yellow 09/09/21 Urine Appearance Clear (Clear) 09/09/21 Urine pH 6.0 (4.5-7.5) 09/09/21 Urine Specific Roslyn 1.022 (1.000-1.030) 09/09/21 Urine Protein Negative (Negative) 09/09/21 Urine Glucose (UA) Negative (Negative) 09/09/21 Urine Ketones Negative (Negative) 09/09/21 Urine Blood Negative (Negative) 09/09/21 Urine Nitrite Negative (Negative) 09/09/21 Urine Bilirubin Negative (Negative) 09/09/21 Urine Urobilinogen Negative (Negative) 09/09/21 Urine Leukocyte Esterase Negative (Negative) 09/09/21 Blood Type A Negative 09/09/21 Antibody Screen POSITIVE A 09/09/21 Lab Comments: Did inform Blood Bank of positive antibodies- Blood Bank aware- no further work up needed per Blood Bank Testing Electrocardiogram Date: 09/09/21 Findings: + no change from (Jul 07, 2016 per cardio ) SR with 1st degree AVB at 63bpm. Nonspecific specific intra-ventricular conduction block. Chest X-Ray Date: 02/22/21 Findings: + NAD and + cardiomegaly (mild ) Lungs well expanded with mild partial elevation/eventration anterior right hemidiaphragm. Slight linear parenchymal density is seen in each lower lung field particularly right lung base could reflect linear atelectasis or scarring. No new focal parenchymal consolidation. Stress Test Date: 10/20/20 Type: nuclear Lexiscan myocardial perfusion stress test. LVEF is calculated at 66%.
--- NOTE | 2021-10-05 08:56 | History & Physical Report ---
Date of Service October 05, 2021 Assessment & Plan (1) Osteoarthritis of right knee: Plan: Schedule a right TKA for 10.08.21. All potential risks, benefits, complications, alternatives, and rehab have been discussed with the patient and she wishes to proceed. Plan for ASA 81 mg BID x 4 wks for post op DVT prophylaxis. (2) Genu varum of right lower extremity: History of Present Illness Chief Complaint: right knee pain Primary Care Provider: Ammon Donovan DO This is a patient with a long hx of right knee pain. She has been treated conservatively for right knee DJD. She has now failed all conservative management. She is being set up for a right TKA. Allergies Allergy/AdvReac Type Severity Reaction Status Date / Time adhesive Allergy Unknown Tape- Verified 09/07/21 09:24 redness, "takes skin off" orphenadrine AdvReac Severe Heart Verified 09/07/21 09:24 racing, GI upset codeine AdvReac Intermediate GI upset, Verified 09/07/21 09:24 heart racing cyclobenzaprine AdvReac Intermediate Bradycardia Verified 09/07/21 09:24 with all muscle relaxants nalbuphine AdvReac Intermediate Heart Verified 09/07/21 09:24 racing, GI upset ondansetron AdvReac Intermediate Migraines, Verified 09/07/21 09:24 N/V tramadol AdvReac Intermediate Heart Verified 09/07/21 09:24 racing, GI upset Tetanus Antitoxin Allergy Severe High Uncoded 09/07/21 09:24 fever, "almost " as child Home Medications Medication Instructions Recorded Confirmed Type aspirin 81 mg tablet,delayed 81 mg PO QAM 04/06/18 09/07/21 History release (Aspir-) omeprazole 40 mg capsule,delayed 40 mg PO QAM 04/06/18 09/07/21 History release allopurinol 100 mg tablet 100 mg PO QAM tab 11/11/20 09/07/21 History atorvastatin 80 mg tablet 80 mg PO QAM 11/11/20 09/07/21 History blood sugar diagnostic (Embrace #10 ea 11/11/20 11/12/20 History Blood Glucose System) fentanyl 100 mcg/hr transdermal 1 patch TRANSDERMAL Q72H 11/11/20 09/07/21 History patch (Duragesic) lisinopril 10 mg tablet 10 mg PO QAM tab 11/11/20 09/07/21 History lidocaine 3.5 % topical patch 1 patch TOPICAL UD PRN 11/12/20 09/07/21 History oxycodone 5 mg tablet 5 mg PO DAILY PRN 11/12/20 09/07/21 History sennosides 8.6 mg tablet (Senna 8.6 mg PO DAILY PRN 11/12/20 09/07/21 History Lax) soy isoflavone 1 dose PO QAM 11/12/20 09/07/21 History cholecalciferol (vitamin D3) 10 10 mcg PO QAM 04/06/21 09/07/21 History mcg (400 unit) tablet (Vitamin D3) multivitamin 1 cap PO QAM 04/06/21 09/07/21 History vitamin E 400 unit capsule 400 unit PO QAM 04/06/21 09/07/21 History Past Med/Surg History Medical History Chronic back pain Chronic chest wall pain "Chronic chest wall syndrome" stable per pt Degenerative disc disease Diabetes mellitus, type 2 DIET CONTROLLED/NO MEDS Glucose stable GERD (gastroesophageal reflux disease) Well controlled and stable History of asthma NO INHALER History of COVID-19 4 MONTHS AGO>NAUSEA/COUGHING (TESTED AT [facility]) FEELING BETTER History of dizziness After hot showers, chronic, stable per pt History of kidney stones No recent issues Hyperlipidemia Hypertension Lumbar stenosis with neurogenic claudication Surgical History Family history of reaction to anesthesia 3 children difficult to wake Fusion of spine Lumbar (4 surgeries, last in 2006) History of appendectomy History of bilateral tubal ligation History of cardiac cath X2 (2009 last) > NO STENTS History of carpal tunnel release RT/LEFT History of cholecystectomy History of colonoscopy History of hysterectomy History of lithotripsy History of thumb surgery bilateral History of tonsillectomy and adenoidectomy History of total knee replacement left Family History Father , Due to Heart Disease Heart disease Mother , due to Alzheimer's Disease Alzheimer disease Sister Family history of colon cancer Sister Family history of colonic polyps Other Family history of diabetes mellitus in father Social History Smoking Status: Former smoker Second Hand Exposure: Yes (IN THE PAST, SOME EXPOSURE); Hx Alcohol Use: Yes Alcohol type: wine Hx Substance Use: No Preferred Language: Togolese Communication Ability: Effective Photocopying Equipment Repairer Required: No Beliefs That Will Affect Care: None Current Living Situation: Family Current Living Situation Comment: GRANDSON LIVES WITH ME>[place]ANT Feels Safe at Home: Yes Assistive Devices: Cane, Denture - Upper and Glasses Physical Exam Constitutional: well developed and well nourished; no acute distress ENMT: external ear and nose normal, oropharynx normal Neck: trachea midline Respiratory: normal respiratory effort, lungs clear to auscultation Cardiovascular: Rate/Rhythm: regular rate and regular rhythm Gastrointestinal (Abdomen): normal bowel sounds, soft, nontender, no hepatosplenomegaly Musculoskeletal: Knee: + deformity (right genu varum), + joint line tenderness (right medial/lateral joint lines), + varus alignment (right) and + Tiffanie's sign positive (right); no skin erythema and no ecchymosis Skin: no rashes, warm and dry Trauma: no evidence of skin trauma Neurologic: normal touch/pain/proprioception Psychiatric: A+Ox3, euthymic affect Speech: normal rate/rhythm/volume of speech Lymphatic: no cervical or axillary lymphadenopathy
[2021-10-08] MEDS ORDERED: GABAPENTIN 300 MG CAP PO SCH (06:00)
[2021-10-08] MEDS ORDERED: LR 500ML BOLUS, THEN 15ML/HR IV SCH (06:00)
[2021-10-08] MEDS ORDERED: TRANEXAMIC ACID 1,000 MG **IV Intra-op IV SCH (06:00)
[2021-10-08] MEDS ORDERED: FAMOTIDINE 20 MG TAB PO SCH (06:00)
[2021-10-08] MEDS ORDERED: METOCLOPRAMIDE HCL 10 MG TABLET PO SCH (06:00)
[2021-10-08] MEDS ORDERED: ceFAZolin 2000MG 2,000 MG/15 ML SYR IV SCH (06:00)
[2021-10-08] MEDS ORDERED: CeleBREX 200 MG CAP PO SCH (06:00)
[2021-10-08] MEDS ORDERED: ACETAMINOPHEN 500 MG TAB PO SCH (06:00)
[2021-10-08] MEDS ORDERED: TRANEXAMIC ACID 1,000 MG **IV Pre-op IV SCH (06:00)
[2021-10-08] MEDS ORDERED: ROPIVACAINE 0.5% HCL/PF 150 MG, BUPIVACAINE 0.75% MPF 20 ML, EPINEPHrine 30MG/30ML (OR ... INSTIL SCH (06:00)
[2021-10-08] MEDS ORDERED: dexAMETHasone 4 MG TAB PO SCH (06:00)
[2021-10-08] MEDS ORDERED: BUPIVACAINE 0.5 % 5 MG/1 ML PF 10ML VIAL ONE (06:22)
[2021-10-08] MEDS ORDERED: BUPIVACAINE 0.25% 30 ML VIAL ONE (06:23)
[2021-10-08] MEDS ORDERED: MIDAZOLAM HCL 1 MG/ML 2ML VIAL ONE ×4 (06:25→10:34)
[2021-10-08] MEDS ORDERED: PROPOFOL IV EMULSION 10 MG/ML 20 ML VIAL IV ONE ×3 (06:25→13:10)
[2021-10-08] MEDS ORDERED: LIDOCAINE 2% 2 ML VIAL/AMP(20MG/ML) INFIL ONE (06:25)
[2021-10-08] MEDS ORDERED: fentaNYL citrate 100 MCG/2 ML VIAL ONE (06:31)
[2021-10-08] MEDS ORDERED: ONDANSETRON INJ 2 MG/ML 2 ML VIAL IV PRN ×2 (06:41→11:31)
[2021-10-08] MEDS ORDERED: fentaNYL citrate 100 MCG/2 ML VIAL IV PRN (06:41)
[2021-10-08] MEDS ORDERED: ATROPINE SULFATE 0.1 MG/ML 10ML SYR IV PRN (06:41)
[2021-10-08] MEDS ORDERED: ePHEDrine sulfate 50 MG/ML AMP IV PRN (06:41)
[2021-10-08] MEDS ORDERED: ORTHO JOINT ANESTHETIC ONE (06:56)
[2021-10-08] MEDS ORDERED: ceFAZolin 330 MG/ML 1 GM VIAL ONE (06:56)
--- NOTE | 2021-10-08 07:06 | History & Physical Bridge Note ---
Date of Service October 08, 2021 History & Physical Bridge Note I have examined the patient, reviewed the History & Physical and in the interval since the performance of the History & Physical I have noted the following changes of clinical significance: no changes noted
--- NOTE | 2021-10-08 09:19 | Post Operative Brief Note ---
Immediate Post Op Note v1 Date of Surgery October 08, 2021 Pre & Post Diagnosis Operation Date: 10/08/21 07:15 Pre-Op Diagnosis: Right Knee Osteoarthritis, flexion contracture, genu varum, right knee pain Post-Op Diagnosis: Right Knee Osteoarthritis, flexion contracture, genu varum, right knee pain I identified the patient and participated in the time-out.: Yes Procedure Operation Date: 10/08/21 07:15 Actual Procedures p Right Total Knee Arthroplasty using a cemented Hines [employer] Nephew MRI matched size 6 femur size 5 tibia 35 mm patella with an 11 mm posterior stabilized polyethylene- Eleuterio Fernandes DO Surgeon Eleuterio Fernandes DO Audio Narrator Francisco Amaro PA-C Estimated Blood Loss 5 Findings Consistent with Post-Op Diagnosis Specimens Bone and tissue right knee Drains Hemovac Drain (10 fr dual trocar) Anesthesia Type MAC Spinal Regional Complications none Disposition Accompanied Patient To Recovery: No Overlapping Procedure I was present for: the critical portions of procedure. I was immediately available: during the entire case.
--- NOTE | 2021-10-08 10:15 | XRay Report ---
TWO VIEWS RIGHT KNEE CLINICAL HISTORY: Postoperative examination. FINDINGS: AP and crosstable lateral portable views of the right knee are obtained. A right knee arthr oplasty is in near anatomic alignment. There has been undersurface remodeling of the patella. No acut e fracture is seen. There are expected postoperative changes around the knee including skin clips, a surgical drain, soft tissue edema, and subcutaneous gas. IMPRESSION: Expected postoperative changes status post right knee arthroplasty. No acute fracture is seen. ACT 112: Negative or not required by law. Electronically signed by: Thee Potter M.D. 10/08/2021 10:14 AM
--- NOTE | 2021-10-08 10:33 | Anesthesiology Progress Note ---
Date of Service October 08, 2021 Anesthesia Post Procedure Vital Signs Vital Signs: Temp Pulse Pulse Resp BP Pulse Ox 10/08/21 10:10 98.1 F 78 15 144/78 H 98 10/08/21 10:00 79 11 L 155/73 H 98 10/08/21 09:50 82 12 137/67 93 10/08/21 09:40 97.9 F 92 H 20 161/71 H 96 10/08/21 05:15 98.6 F 74 21 181/95 H 97 Pain Intensity Right Knee: Pain Intensity: 0 Transfer of Care Handoff Completed per policy Notes Mental Status: alert / awake / arousable and participated in evaluation Patient Amnestic to Procedure: Yes Nausea / Vomiting: adequately controlled Pain: adequately controlled Airway Patency, RR, SpO2: stable & adequate BP & HR: stable & adequate Hydration State: stable & adequate Neuraxial Anesthesia: was administered and sensory block is resolving Anesthetic Complications: no major complications apparent and Pt Satisfied with anesthetic care
[2021-10-08] MEDS ORDERED: MAGNESIUM HYDROXIDE SUSP 30 ML UDC PO PRN (11:31)
[2021-10-08] MEDS ORDERED: METOCLOPRAMIDE HCL INJ 5 MG/ML 2 ML VIAL IV PRN (11:31)
[2021-10-08] MEDS ORDERED: SENNA 8.6 MG TAB PO PRN (11:31)
[2021-10-08] MEDS ORDERED: bisacodyL 10 MG SUPP PR PRN (11:31)
[2021-10-08] MEDS ORDERED: ALUMINUM/MAGNESIUM SUSP 30 ML UDC PO PRN (11:31)
[2021-10-08] MEDS ORDERED: diphenhydrAMINE Capsule 25 MG CAP PO PRN (11:31)
[2021-10-08] MEDS ORDERED: LIDOCAINE 3.5% TOP PRN (11:31)
[2021-10-08] MEDS ORDERED: oxyCODONE HCL IR 5 MG TAB (IMMEDIATE RELEASE) PO PRN (11:31)
[2021-10-08] MEDS ORDERED: NALOXONE HCL 0.4 MG/1 ML VIAL/CARP IV PRN (11:31)
[2021-10-08] MEDS ORDERED: HYDROmorphone INJ 0.5 MG/0.5 ML SYR IV PRN (11:31)
[2021-10-08] MEDS ORDERED: KETOROLAC TROMETHAMINE 15 MG/ML VIAL IV PRN (11:31)
[2021-10-08] MEDS: SODIUM CHLORIDE 0.9% 1000ML 1,000 ML IV SCH (11:50)
[2021-10-08] MEDS: ACETAMINOPHEN 500 MG TAB PO SCH ×2 (14:21→23:07)
--- NOTE | 2021-10-08 15:54 | Operative Report (OR) ---
DATE OF PROCEDURE: 10/08/2021. PREOPERATIVE DIAGNOSES: 1. Right knee osteoarthritis. 2. Right knee flexion contracture. 3. Genu varum. 4. Right knee pain. POSTOPERATIVE DIAGNOSES: 1. Right knee osteoarthritis. 2. Right knee flexion contracture. 3. Genu varum. 4. Right knee pain. PROCEDURE: Right cemented total knee arthroplasty with MRI matched Hines and Nephew size 6 femur, size 5 tibia, 11 mm posterior stabilized polyethylene and a 35 mm round patella. SURGEON: Eleuterio Fernandes DO. TIRE MANAGER: Francisco Amaro PA-C who was present for patient positioning, sterile prep and drape, management of retractors and instruments. He was present through the critical portions of the case including wound closure, application of sterile dressing and transport of the patient to recovery. ANESTHESIA: Spinal MAC, regional with local. SPECIMENS: Bone and tissue, right knee. DRAINS: None. COMPLICATIONS: None. BLOOD LOSS: 5 mL PERTINENT HISTORY: This is a 71-year-old female with chronic progressive and worsening degenerative arthritis of the right knee with severe pain, limitation of range of motion, limitation in functionality. She failed physical therapy, physician-directed home exercises, steroid injection, anti-inflammatories, ice and use of a brace. Radiographs demonstrate complete loss of medial joint space, marginal osteophytes, subchondral sclerosis, and subchondral cysts. The patient was scheduled for surgery as indicated. All potential risks, benefits, complications, alternatives, rehab potential for incomplete relief of symptoms, need for further surgery, DVT, PE, , persistent pain, swelling, scarring, weakness, neurovascular injury, wound complications, hardware failure, nonunion, malunion, bone fracture were discussed with the patient. The patient decided to proceed with the procedure as indicated. DESCRIPTION OF PROCEDURE: The patient was taken to the Operative Suite and placed supine on the operating table after spinal epidural was initiated. Next, tourniquet was placed high on the right thigh over cast padding and the patient was sedated. The right lower extremity was then sterilely prepped and draped in the usual fashion. It was elevated and exsanguinated with an Esmarch bandage and tourniquet inflated to 350 mmHg. Next, a 10-blade scalpel incision was made along the anterior midline of the right knee with incision deep through the subcutaneous tissue. Meticulous hemostasis was utilized with electrocautery. Full thickness skin flaps were developed both medially and laterally and 10- blade scalpel was used to make a median parapatellar incision in the extensor. The patella was everted and soft tissue releases were performed. The medial collateral was noted to be slightly tight so this was partially released using pie-crusting technique and the Cruz elevator was placed from the posterior aspect of the capsule releasing any contracture. Next, the patella was everted and resurfaced using sagittal saw and orthogonal cuts. After caliper measured 24 mm, residual patella was approximately 14 mm and 35 mm button trial was placed and then drilled. Next, the appropriate retractors were placed and the femoral patient matched cutting block was pinned to the distal aspect of the femur. The distal femoral cut was made and pinned with pins and the distal femoral cutting guide was removed. The 4-in-1 cutting block was then pinned in place and anterior, posterior, anterior chamfer, and posterior chamfer cuts were made. Block and bone fragments were then removed followed by exposure of the proximal tibia. Sharp Hohmann was used to place just posterior to the tibia to protract it. Medial and lateral sharp Hohmann's were placed to protect the soft tissue and the tibial cutting block was then pinned in place. Tibial alignment zak was utilized to confirm alignment and the proximal tibia was then cut made with sagittal saw. Fragment was removed. The Size 5 tibial trial was pinned in place and circumferential proximal release was performed with electrocautery around the proximal tibia. Next, the femoral trial was placed within appropriate medial and lateral alignment and then the cutting block was then put into place. It was reamed and box cut was performed. Excess debris was removed from the femoral notch. The insert was placed into the distal aspect of the femur. Trial poly Size 10 mm was placed in the proximal tibia. The knee was reduced. Trial poly Size 35 mm round was placed in the patella. The knee was reduced. Excellent alignment and range of motion was achieved with correction of the genu varum and flexion contracture was achieved. Of note, +2 distal femoral cut was performed as a result of his flexion contracture prior to placement of the 4-in-1 cutting block. Next, all components were removed. The Orthomix was injected into the posterior capsule and anterior aspect of the capsule. Next, the wound was lavaged with pulsatile lavage and all surfaces were suctioned and dried. Palacos-G cement was placed in the distal femur, proximal tibia, patella, and then a small amount was placed in the canal of the tibia. All implants were impacted into place in a stable fashion. Excess cement was removed from the joint. The patellar button was cemented and clamped in place. The knee capsule and extensor was closed using interrupted #1 Vicryl. The dermis was closed using buried interrupted 2-0 Vicryl. The skin was closed with skin helen. Sterile compressive dressing from the toes to the groin was applied. The tourniquet was released. The patient was awakened and taken to the Recovery Room in stable condition. Job ID: [id number] [facility]
[2021-10-08] MEDS ORDERED: TRANEXAMIC ACID / 0.7% NACL 1,000 MG/100 ML BAG IV SCH (16:00)
[2021-10-08] MEDS: ceFAZolin 2000MG 2,000 MG/15 ML SYR IV SCH ×2 (16:32→23:10)
[2021-10-08] MEDS: CHECK fentaNYL PATCH PLACEMENT SCH ×2 (16:38→23:08)
[2021-10-08] MEDS: DOCUSATE SODIUM 100 MG CAP PO SCH (20:27)
[2021-10-08] MEDS: ASPIRIN 81 MG ECTAB PO SCH (20:27)
[2021-10-08] MEDS ORDERED: SENNA 8.6 MG TAB PO SCH (21:00)
[2021-10-09] MEDS: SODIUM CHLORIDE 0.9% 1000ML 1,000 ML IV SCH (01:15)
[2021-10-09] MEDS: ACETAMINOPHEN 500 MG TAB PO SCH (06:06)
[2021-10-09 06:42] LABS: Hematocrit (blood only) 35.1 % (37-47); Hemoglobin 11.4 g/dL (12.0-16.0); Mean Corpuscular Hemoglobin 29.4 pg (25-34); Mean Corpuscular Hgb Conc 32.5 g/dL (32-36); Mean Corpuscular Volume 90.5 fL (80-100); Mean Platelet Volume 9.9 fL (7.4-10.4); Platelet Count 236 K/uL (130-400); RDW Coefficient of Variation 13.3 % (11.5-14.5); RDW Standard Deviation 43.6 fL (36.4-46.3); Red Blood Count 3.88 M/uL (4.2-5.4); White Blood Count 18.26 K/uL (4.8-10.8)
[2021-10-09 06:57] LABS: BUN Creatinine Ratio 32.1 (10-20); Calcium 8.4 mg/dl (8.5-10.1); Creatinine Clr Calc Pharmacy 68.2 ml/min; Est GFR (African American) 83.5 ml/min; Est GFR (Non-African American) 72.1 ml/min; Potassium 4.2 mmol/L (3.5-5.1)
--- NOTE | 2021-10-09 08:17 | Orthopedic Progress Note ---
Date of Service October 09, 2021 Assessment & Plan (1) Osteoarthritis of right knee: Plan: Postop day #1 right TKA -PT/OT -Pain management as written -DVT prophylaxis: SCDs, teds, aspirin 81 mg twice daily -AM labs: Hemoglobin at 11.4 this morning from 13.1 preop. Leukocytosis likely reactive. Patient asymptomatic. -Discharge planning plan with home with home health PT. Case management consulted. Plan on home today after PT if goes well. Admission and Anticipated Discharge Date Admission Date: October 08, 2021 Subjective Patient is postop day #1 right TKA. Seen in her room sitting on her edge of her bed. She is about to get up to ambulate the halls. She is doing well this morning. Pain is well controlled. No other complaints. Denies chest pain, shortness of breath, dizziness, headaches, fever/chills, nausea/vomiting. Review of Systems Review of Systems: All systems reviewed & are unremarkable except as noted in Subjective Physical Exam Physical Exam: Right knee: Dressing is clean, dry, intact. Hemovac in place. Toes are mobile with good dorsiflexion. No calf tenderness. Able to do straight leg raise. Distally neurovascular status and sensation intact. Results & Data ([facility]) Vital Signs (Past 12 Hours) Vital Signs Temp Pulse Pulse Resp BP Pulse Ox 10/09/21 07:35 36.8 C 78 18 141/77 H 94 10/09/21 02:46 36.9 C 60 16 128/88 93 10/08/21 23:45 36.9 C 65 18 133/78 93
[2021-10-09] MEDS: DOCUSATE SODIUM 100 MG CAP PO SCH (08:37)
[2021-10-09] MEDS: ASPIRIN 81 MG ECTAB PO SCH (08:37)
[2021-10-09] MEDS: CHECK fentaNYL PATCH PLACEMENT SCH (08:42)
[2021-10-09] MEDS ORDERED: SOY ISOFLAVONE PO SCH (09:00)
[2021-10-09] MEDS ORDERED: PANTOprazole 40 MG TAB PO SCH (09:00)
[2021-10-09] MEDS ORDERED: lisinopril 10 MG TAB PO SCH (09:00)
[2021-10-09] MEDS ORDERED: allopurinoL 100 MG TAB PO SCH (09:00)
[2021-10-09] MEDS ORDERED: NON-FORMULARY MEDICATION (Multivitamin Capsule) PO SCH (09:00)
[2021-10-09] MEDS ORDERED: TOCOPHERYL, DL-ALPHA 400 UNITS 180 MG CAP PO SCH (09:00)
[2021-10-09] MEDS ORDERED: ATORVASTATIN 40 MG TAB PO SCH (09:00)
[2021-10-09] MEDS ORDERED: CHOLECALCIFEROL 400 UNITS 10 MCG TAB PO SCH (09:00)
[2021-10-09] MEDS ORDERED: MULTIVITAMIN TAB PO SCH (09:00)
[2021-10-09] MEDS ORDERED: CeleBREX 200 MG CAP PO SCH (09:00)
[2021-10-11] MEDS ORDERED: fentaNYL 100 MCG/HR TDSY TD SCH (04:15)
== END 2021-10-09 12:00 | disposition home health service (06) ==
LOC: ASU 04:48 → 3W 04:48